=== PATIENT | female | born 1995 | race Two or more races ===

== ENCOUNTER → 2025-04-11 | Outpatient (CLI) | payer MEDICAID, SELFPAY ==
--- NOTE | 2025-04-11 13:30 | XR_ITS ---
Examination: Duplex scan of the lower extremity, unilateral left Date and time of exam: April 11, 2025 1409 hours INDICATIONS: Left calf pain beginning 8 months ago Technique: Duplex scan of the extremity veins using B-mode/grayscale imaging and Doppler spectral analysis and color flow Attention is directed to internal echogenicity, compression and augmentation involving these veins, color flow assessment, spectral analysis Findings: Major deep venous structures in the extremity demonstrate normal course and caliber. There is no evidence of deep vein thrombosis. Normal color flow and spectral analysis Impression: Negative for DVT..
== END | disposition home or self-care (01) ==
DX: I83.892 Varicose veins of left lower extremity with other complications (principal)
CPT/HCPCS: 93971